=== PATIENT | female | born 1965 | race Two or more races ===

== ENCOUNTER 2018-08-28 19:38 | Emergency (ER) | payer OTHER ==
[~2018-08-28] VITALS: Ht 167.6 cm; Wt 71.7 kg
[~2018-08-28 19:38] MED LIST: CIPRO500 MG PO; EPZICOM TABLET1 TAB; FLAGYL500MG PO; ISENTRESS400 MG
== END 2018-08-28 20:36 | disposition home or self-care (01) ==
LOC: ER 19:38
DX: T78.49XA Other allergy, initial encounter (principal); R21 Rash and other nonspecific skin eruption

== ENCOUNTER 2022-02-18 11:30 | Inpatient (IN) | payer OTHER ==
[~2022-02-18] VITALS: Ht 165.1 cm; Wt 78.5 kg
[2022-02-18] MEDS ORDERED: LEVOTHYROXINE25 MCG PO (13:29)
[2022-02-18] MEDS ORDERED: LIPITOR20 MG PO (13:29)
[2022-02-18] MEDS ORDERED: [UNRECOGNIZED DRUG - OTHER] (13:33)
[2022-02-21] MEDS ORDERED: ESOMEPRAZOLE MA40 MG (08:21)
[2022-02-21] MEDS ORDERED: FAMOTIDINE40 MG (08:21)
[2022-02-21] MEDS ORDERED: DESCOVY 200-251 EACH (08:21)
[2022-02-21] MEDS ORDERED: ISENTRESS HD600 MG (08:21)
[2022-02-21] MEDS ORDERED: LEVO-T25 MCG (08:22)
== END 2022-02-21 13:50 | disposition home or self-care (01) | DRG 741 ==
LOC: O/R 02-20 07:23 → OB/GYN 02-20 10:15 → SURH 02-20 15:39
PROVIDERS: ADMIT Obstetrics & Gynecology Gynecologic Oncology; ATTEND Obstetrics & Gynecology Gynecologic Oncology
PROC: 0UT74ZZ Resection of Bilateral Fallopian Tubes, Percutaneous Endoscopic Approach (ICD-10-PCS; 2022-02-20)
PROC: 0UT24ZZ Resection of Bilateral Ovaries, Percutaneous Endoscopic Approach (ICD-10-PCS; 2022-02-20)
PROC: 07BC4ZZ Excision of Pelvis Lymphatic, Percutaneous Endoscopic Approach (ICD-10-PCS; 2022-02-20)
PROC: 0UT94ZZ Resection of Uterus, Percutaneous Endoscopic Approach (ICD-10-PCS; principal; 2022-02-20 10:15)
DX: C54.1 Malignant neoplasm of endometrium (principal); Z20.822 Contact with and (suspected) exposure to COVID-19